=== PATIENT | male | born 1980 | race Caucasian/White ===

== ENCOUNTER 2025-09-30 12:04 | Emergency (ER) | payer MEDICARE, BC, SELFPAY ==
[2025-09-30 12:06] VITALS: BP 176/81
--- NOTE | 2025-09-30 13:12 | ED.GENMED ---
History of Present Illness
General
Chief Complaint: Abdominal Pain
Source: patient
Exam Limitations: none
Time Seen by Provider: 09/30/25 12:35
Nursing documentation reviewed up to this point in time: agreed with
History of Present Illness
History of Present Illness:
Patient is a 45-year-old male with history hypertension, multiple sclerosis who presents to the emergency department with persistent left inguinal pain following hernia repair approximately 3 months ago. Patient states he had an left inguinal hernia
repair and cholecystectomy with Dr. Alegria at [facility] on 06/27. He describes a persistent 'tightening' / 'pulling' sensation in area of operation. Symptoms exacerbated with certain movements. No fevers, vomiting, dysuria or hematuria.
At intial post-op appointment patient was instructed to take NSAIDS for pain however it does not seem to be improving. He contacted his surgeons office today and was referred to an emergency department for imaging.
Review of Systems
Review of Systems
Allergies reviewed?: Yes
All Other Systems: ROS reviewed and negative except as documented in HPI and ROS
Phy Exam
Physical Exam
Physical Exam:
Vitals: Hypertensive, otherwise vital signs stable
General: Patient is well appearing, no acute distress. Nontoxic appearing.
Skin: Warm and dry, no rashes or lesions
Head: Normocephalic, atraumatic
Throat: Protecting airway
Neck: Normal ROM, no cervical spine tenderness, no meningismus
Cardiac: Regular rate and rhythm, no murmurs.
Pulm: Normal respiratory effort. Lungs clear
.
Abdomen: Abdomen soft and nontender. No tenderness in RUQ. Reproducible tenderness in left inguinal crease without palpable bulge or overlying skin changes of erythema or warmth. Well healed laparoscopic abdominal scars.
Extremities: No evidence of cyanosis or edema. Full ROM in bilateral lower extremities.
Neuro: AAOx3. Grossly intact.
Psychiatric: Normal affect.
Course
Orders/Labs/Results
Orders:
Orders
09/30/25 13:10
0.9% Sodium Chloride 1000 ml [Nss] 1,000 ml IV BOLUS
Ketorolac [Toradol] 15 mg IV NOW STA
09/30/25 13:11
CT Abd/pelvis W Iv Cont Urgent
Comment: left inguinal hernia repair 06/27 at [facility]
Reason For Exam: Left inguinal pain
09/30/25 13:16
Complete Blood Count/With Diff Urgent
Comprehensive Metabolic Panel Urgent
Lipase Urgent
09/30/25 15:02
Urinalysis Reflex To Culture Urgent
Date Specimen was Collected: 09/30/25
Time Specimen was Collected: 15:01
Urine Microscopic Reflex Cult Urgent
Abnormal Lab Results
09/30/25 09/30/25
13:16 15:02
Absolute Lymphs (auto) 0.5 L 10^3/uL
(1.2-3.4)
Neutrophils % 75.4 H %
(42.2-75.2)
Lymphocytes % 10.4 L %
(20.5-51.1)
Monocytes % 11.8 H %
(1.7-9.3)
Urine Bacteria (Reflex) Few A
(Negative)
Urine Albumin (Reflex) 1+ A
(Neg - Trace)
09/30/25 13:16
09/30/25 13:16
Vital Signs
Initial and Last Documented VS:
Initial Vital Signs
Temp Pulse Resp BP Pulse Ox
98.3 F 60 20 176/81 98
09/30/25 12:06 09/30/25 12:06 09/30/25 12:06 09/30/25 12:06 09/30/25 12:06
Last Documented Vital Signs
Temp Pulse Resp BP Pulse Ox
98.3 F 50 18 144/85 97
09/30/25 12:06 09/30/25 15:51 09/30/25 15:51 09/30/25 15:51 09/30/25 15:51
MDM/Problems Addressed
Differential Diagnosis Includes:
Not limited to: post-operative adhesions, hematoma, neuropathic pain, recurrent inguinal hernia, renal colic, muslce strain, etc
MDM/Problems Addressed:
45-year-old male with persistent left inguinal discomfort 3 months following inguinal hernia repair. Symptoms worse with certain movements. No associated fever, vomiting, urinary symptoms. Patient had left inguinal hernia repair and
cholecystectomy performed in June with Dr. Alegria at [facility]. Postoperative visit with surgeon revealed no abnormalities.
Mildly hypertensive with otherwise stable vital signs. Physical exam as above. He does have inguinal crease without any palpable bulge or overlying skin changes including erythema or warmth. His abdomen is benign with well-healing laparoscopic
surgical scars.
Differential as above. Symptoms may be normal postoperative pain. Possible muscular injury or neuropathic pain from surgery.
ED plan: Labs, UA, CT scan abdomen/pelvis. Will touch base with patient surgical group following above.
Update: Labs without clinically significant abnormalities. No leukocytosis. Chemistry unremarkable. Urine shows no evidence of RBCs or infectious process. CT scan shows findings consistent with recent cholecystectomy and inguinal hernia repair
however no evidence of postoperative fluid collections or abscess.
Ultimately�workup in emergency department unremarkable. He remains stable and nontoxic-appearing. No evidence of acute emergent or infectious process. I did contact patient surgical group at [facility] to review results here. They feel patient is
stable for discharge from emergency department and were able to schedule him for x-ray to follow-up on 10/08/24 with surgeon.
Will send prescription for pain medication and advised Tylenol/Motrin at home. Strict return precautions discussed with patient. Patient expressed verbal understanding and will follow-up with his surgeon as directed.
Chronic conditions affecting care:
Recent left inguinal hernia repair and cholecystectomy
Acute Exacerbation and/or Progression of Chronic Illness:
N/A
*Radiology
Radiology exam reviewed: radiology read reviewed
*Pulse Oximetry
SaO2: 98
Oxygen Mode of Delivery: Room air
Patient hypoxic: no
*EKG
Interpreted by ED Provider?: NA
*Shirt Operator Interpretation
Rate: Shirt Operator- N/A
*Critical Care Note
Total Time (30-74mins, 75-104mins- exclusive of procedures): Not Applicable
ED Attending Note
-
Portions of this chart may have been created with voice recognition software.� Occasional wrong word or��sound alike� substitutions may have occurred due to the inherent limitations of voice recognition software.
Discharge Plan
Departure
Patient Disposition: Home (Routine Discharge)
Date of Disposition: 09/30/25
Time of Disposition: 16:39
Patient with high blood pressure during this ER visit?: Yes
Condition: Good
Covid-19: Not Applicable
Discharge Problem:
Acute postoperative pain of left groin
Instructions: BLOOD PRESSURE
Prescriptions:
New
oxycodone 5 mg tablet
5 mg PO HS PRN (Reason: Pain) Qty: 10 0RF
Referrals:
Dr. Alegria [Other] - Keep scheduled appt
Basilio Carrillo DO [Family Provider, Family Practice]
Activity Restrictions/Additional Instructions:
RETURN TO THE EMERGENCY DEPARTMENT WITH ANY FEVER, CHILLS, INTRACTABLE PAIN IN LEFT GROIN, REDNESS OR SWELLING OF SKIN IN LEFT GROIN, INTRACTABLE VOMITING OR DIFFICULTY URINATING, WORSENING CURRENT SYMPTOMS, OR ANY OTHER CONCERNS
- As discussed- your lab work, urinalysis, and CT scan showed no acute findings today in the emergency department.
- I did discuss with your general surgery team who will see you in office for follow-up on October 08 at 1 PM. Please call their office tomorrow morning to confirm appointment.
- Please continue to take Tylenol and/or Motrin as needed for pain. I sent a prescription for oxycodone which you can take for intractable pain prior to sleep. This may cause drowsiness and you should not take prior to driving.
Monitor your symptoms closely and return to the emergency department for any acute worsening/new symptoms or any other concerns
Interventions
Interventions:
*General Assessment Last Done: 09/30/25 12:06
*Neglect/Abuse Screening Last Done: 09/30/25 12:06
*ED COVID-19 Vaccine History Last Done: 09/30/25 15:52
*ED Influenza Vaccine History Last Done: 09/30/25 15:52
[facility] Fall Risk Assessment Tool Last Done: 09/30/25 13:37
*Risk Screen - Suicide (C-SSRS) Last Done: 09/30/25 15:52
*Nursing Disposition Last Done: 09/30/25 16:46
NU-Iwppzm-Ioqslehhpn Assessment Last Done: 09/30/25 12:31
Discharge Date and Time
Discharge Date/Time: 09/30/25 16:46
Print Language: SOMALI
[2025-09-30] MEDS: TORADOL 15 MG IV (13:17)
[2025-09-30] MEDS: NSS 1000 IV (13:17)
[2025-09-30 13:25] LABS: Hematocrit 39.7 % (39.0-52.0); Hemoglobin 14.6 g/dL (13.0-18.0); Mean Corp Hgb Conc. 36.8 g/dL (33.0-37.0); Mean Corpuscular Volume 83.4 fL (80.0-94.0); Nucleated Red Blood Cells % 0 % (-); Platelet Count 199 10^3/uL (130-400); Red Cell Dist. Width 12.4 % (11.5-14.5)
[2025-09-30 13:38] LABS: ALT (SGPT) 34 U/L (0-50); AST (SGOT) 27 U/L (17-59); Albumin 4.6 g/dl (3.5-5.0); Alkaline Phosphatase 85 U/L (38-126); Blood Urea Nitrogen 19 mg/dl (9-20); Calcium 9.3 mg/dl (8.4-10.2); Carbon Dioxide 24 mmol/L (22-30); Chloride 106 mmol/L (98-107); Glucose 93 mg/dl (70-99); Lipase 48 U/L (23-300); Potassium 4.1 mmol/L (3.5-5.1); Sodium 138 mmol/L (135-145); Total Protein 7.0 g/dl (6.3-8.2); eGFR > 60.00
[2025-09-30 15:21] LABS: Urine Character Clear (Clear)
[2025-09-30 15:35] LABS: Urine Red Blood Cell 0-2 /HPF (0-2); Urine Squamous Cell 0-2 /LPF (Few); Urine White Cell 0-2 /HPF (0-5)
[2025-09-30 15:51] VITALS: BP 144/85
== END 2025-09-30 16:46 | disposition home or self-care (01) ==
LOC: EMR 12:04
PROVIDERS: Physician Assistant; EMERGENCY PHYSICIAN Emergency Medicine; FAMILY PHYSICIAN Family Medicine
DX: R10.9 Unspecified abdominal pain (principal); I10 Essential (primary) hypertension; G35.D Multiple sclerosis, unspecified; Z90.49 Acquired absence of other specified parts of digestive tract
CPT/HCPCS: 99284; 96374; 74177; 80053; 81003; 81015; 83690; 85025; Q9967